=== PATIENT | male | born 1990 | race Native Hawaiian/Other Pacific Islander ===

== ENCOUNTER 2020-07-17 19:32 | Emergency (ER) | payer BC ==
[~2020-07-17] VITALS: Ht 165.1 cm; Wt 74.8 kg
--- NOTE | 2020-07-17 19:43 | ED Upper Extremity ---
General Stated Complaint: TOOTH ACHE Source: patient Exam Limitations: no limitations History of Present Illness Date Seen by Provider: Jul 17, 2020 Time Seen by Provider: 19:35 Initial Comments To ER with a left lower toothache since yesterday. He had a left molar on the bottom removed about 2 to 3 weeks ago. He was doing fine until yesterday at which point he had pain when he clenched his teeth. Tylenol and ibuprofen at home did not control it. Today he had a recurrence of the pain and again took Tylenol and ibuprofen which did control the pain this time. No swelling Onset: yesterday Severity: moderate Pain/Injury Location: left other Modifying Factors: Worse With Movement Allergies and Home Medications Allergies Coded Allergies: No Known Drug Allergies (Unverified , 07/17/20) Patient Home Medication List Home Medication List Reviewed: Yes Review of Systems Constitutional: see HPI EENTM: see HPI Respiratory: no symptoms reported Cardiovascular: no symptoms reported Genitourinary: no symptoms reported Musculoskeletal: no symptoms reported Skin: no symptoms reported Psychiatric/Neurological: No Symptoms Reported Physical Exam Vital Signs Capillary Refill : Height, Weight, BMI Height: '" Weight: lbs. oz. kg; BMI Method: General Appearance: WD/WN, no apparent distress HEENT: PERRL/EOMI, normal ENT inspection, other (The socket of the extracted tooth seems to be healing appropriately without swelling. There is no buccal abscess. The tooth in front of this socket does have a filling in it and just perhaps the source of pain.) Neck: non-tender, full range of motion Respiratory: no respiratory distress, no accessory muscle use Shoulder: normal inspection, non-tender Elbow/Forearm: normal inspection, non-tender, Right Hand: normal inspection, non-tender, Right Neurologic/Psychiatric: alert, normal mood/affect, oriented x 3 Skin: normal color, warm/dry Progress/Results/Core Measures Results/Orders My Orders Orders - MICHAEL ACUNA APRN Amoxicillin Capsule (Polymox Capsule) (07/17/20 20:33) Rx-Hydrocodone/Apap 5-325 Mg (Rx-Vicodin (07/17/20 20:45) Departure Impression Primary Impression: Pain, dental Disposition: HOME, SELF-CARE Condition: Stable Departure-Patient Inst. Decision time for Depature: 20:37 Referrals: NO,LOCAL PHYSICIAN (PCP/Family) Primary Care Physician Patient Instructions: Dental Pain Add. Discharge Instructions: 1. Follow-up with your dentist. Call Monday to make an appointment. Return to ER for any concerns. Scripts Hydrocodone/Acetaminophen (Hydrocodone-Acetamin 5-325 mg) 1 Each Tablet 1 TAB PO Q4H PRN for PAIN-MODERATE (5-7), #10 TAB Prov: MICHAEL ACUNA APRN 07/17/20 Amoxicillin (Amoxicillin) 500 Mg Capsule 500 MG PO TID, #14 CAP Prov: MICHAEL ACUNA APRN 07/17/20 MICHAEL ACUNA APRN Jul 17, 2020 19:43
[2020-07-17 20:13] VITALS: BP 129/80
[2020-07-17] MEDS ORDERED: AMOXICILLIN 500 MG (POLYMOX) CAP PO STA (20:33)
[2020-07-17] MEDS ORDERED: AMOX500C2 PO (20:38)
[2020-07-17] MEDS ORDERED: ACHD5005 PO (20:39)
[2020-07-17] MEDS ORDERED: RX-HYDROCODONE/APAP 5/325 MG #4 TAB PK PO PRN (20:45)
== END 2020-07-17 20:45 | disposition home or self-care (01) ==
LOC: ER 19:35
DX: K08.89 Other specified disorders of teeth and supporting structures (principal)
CPT/HCPCS: 99283

== ENCOUNTER 2023-03-11 10:03 | Emergency (ER) | payer OTHER ==
[~2023-03-11] VITALS: Ht 167 cm; Wt 72.5 kg
[~2023-03-11 10:03] MED LIST: ACHD5005 PO; AMOX500C2 PO
--- NOTE | 2023-03-11 10:14 | ED Cough/URI ---
General Chief Complaint: Cough/Cold/Flu Symptoms Stated Complaint: HEADACHE/RUNNY NOSE/SORE THROAT Source: patient Exam Limitations: no limitations History of Present Illness Date Seen by Provider: Mar 11, 2023 Time Seen by Provider: 10:14 Initial Comments Patient is a 32-year-old male who presents to the emergency room with a mild he adache, congestion, runny nose nonproductive cough. Symptoms 24 hours. Went to work this morning and his boss told him that he could go home and the patient is simply requesting a work note that he was seen and evaluated in the emergency room. He denies any fever. He is not short of breath. No diarrhea. Does not take any daily medications. No known drug allergies. Does not smoke. Took some mejc-azt-tyoywww "cold medication" last night. Timing/Duration: yesterday Severity/Quality: mild Prior Episodes/Possible Cause: occasional episodes Associated Symptoms: cough, nasal drainage, sore throat (Mild) Allergies and Home Medications Allergies Coded Allergies: No Known Drug Allergies (Unverified , 07/17/20) Patient Home Medication List Home Medication List Reviewed: Yes Amoxicillin (Amoxicillin) 500 Mg Capsule, 500 MG PO TID Prescribed by: MICHAEL ACUNA on 07/17/202037 Hydrocodone/Acetaminophen (Hydrocodone-Acetamin 5-325 mg) 1 Each Tablet, 1 TAB PO Q4H PRN for PAIN-MODERATE (5-7) Prescribed by: MICHAEL ACUNA on 07/17/202040 Review of Systems Review of Systems Constitutional: see HPI EENTM: nose congestion Respiratory: cough; No short of breath Cardiovascular: no symptoms reported Gastrointestinal: no symptoms reported Genitourinary: no symptoms reported Musculoskeletal: no symptoms reported Skin: no symptoms reported Psychiatric/Neurological: Headache (Mild) Past Hdgwnub-Rxqscj-Pedabr Hx Patient Social History Tobacco Use?: Yes Smoking Status: Current Someday Smoker Substance use?: No Alcohol Use?: Yes Pt feels they are or have been: No Immunizations Up To Date First/Initial COVID19 Vaccinat: DENIES Seasonal Allergies Seasonal Allergies: No Past Medical History Surgeries: No Respiratory: No Cardiac: No Neurological: No Genitourinary: No Gastrointestinal: No Musculoskeletal: No Endocrine: No HEENT: No Cancer: No Psychosocial: No Integumentary: No Blood Disorders: No Physical Exam Vital Signs - First Documented 03/11/23 10:08 Temp 36.7 Pulse 79 Resp 16 B/P (MAP) 143/65 (91) Pulse Ox 99 O2 Delivery Room Air Capillary Refill : Height: '" Weight: lbs. oz. kg; 27.00 BMI Method: General Appearance: WD/WN, no apparent distress Eyes: Bilateral Eye Normal Inspection, Bilateral Eye PERRL, Bilateral Eye EOMI HEENT: pharynx normal, TM abnormal (R), TM abnormal (L) (bilateral effusions), pharyngeal erythema (Mild), other (Appears adequately hydrated) Neck: supple Respiratory: lungs clear, normal breath sounds, no respiratory distress, no accessory muscle use Cardiovascular: regular rate, rhythm Gastrointestinal: non tender, soft Extremities: normal range of motion Neurologic/Psychiatric: alert, normal mood/affect, oriented x 3 Skin: normal color, warm/dry Progress/Results/Core Measures Suspected Sepsis SIRS Temperature: Pulse: Respiratory Rate: Blood Pressure / Mean: Results/Orders Vital Signs/I&O 03/11/23 10:08 Temp 36.7 Pulse 79 Resp 16 B/P (MAP) 143/65 (91) Pulse Ox 99 O2 Delivery Room Air Capillary Refill : Progress Note : Time: 10:27 Progress Note Patient seen and evaluated by me. Evaluation today includes history and physical exam. Pertinent physical exam findings include well-developed well- nourished male no acute distress with stable vital signs, afebrile. He has bilateral effusions at both tympanic membranes. Very minimal pharyngeal erythema, appears adequately hydrated. No anterior cervical lymphadenopathy. Lungs are clear without rales, [place] rhonchi or wheezes. He is in no respiratory distress. Differential diagnosis includes COVID/flu/other viral respiratory illness Patient offered COVID flu testing and he declines. He would simply like a work note that he was seen and evaluated here. I recommended myfk-ssq-ltqzgcm cold medications such as DayQuil, NyQuil for symptoms. Mucinex for cough and congestion. He is comfortable with the plan of care. All questions are sought and answered. Stable for discharge. Departure Impression Primary Impression: Viral URI with cough Disposition: 01 HOME, SELF-CARE Condition: Stable Departure-Patient Inst. Decision time for Depature: 10:29 Referrals: [facility],LOCAL PHYSICIAN (PCP) Primary Care Physician Patient Instructions: Cough, runny nose, and the common cold Add. Discharge Instructions: Drink plenty of fluids to stay well-hydrated. Wcrb-[id number]-[id number] ibuprofen 2 to 3 tablets which is 400 to 600 mg every 6 hours w ith food as needed for headache, body aches. Xukn-inl-vcivyiv DayQuil or NyQuil as needed for congestion symptoms. You can also take Mucinex for cough. If you start running a fever over 101 you really should be COVID tested before returning to work. Mask at work as long as you have a cough. Return to the emergency department for any new, concerning or emergent complaints. Work/School Note: Work Release Form Date Seen in the Emergency Department: Mar 11, 2023 Return to Work: Mar 12, 2023 JASON HUIZAR MD Mar 11, 2023 10:14
[2023-03-11 10:38] VITALS: BP 115/87
== END 2023-03-11 10:38 | disposition home or self-care (01) ==
LOC: EDUNIT# 10:03 → ER 10:06
DX: J06.9 Acute upper respiratory infection, unspecified (principal); F17.200 Nicotine dependence, unspecified, uncomplicated
CPT/HCPCS: 99283